=== PATIENT | female | born 1965 | race Caucasian/White ===

== ENCOUNTER 2018-04-22 08:59 | Inpatient (IN) | payer BC ==
[2018-04-22 10:17] LABS: ADD UMIC YES; UR ASCORBIC ACID 20 mg/dL (NEGATIVE); UR BILIRUBIN (Dip) NEGATIVE (NEGATIVE); UR BLOOD (Dip) 3+ mg/dL (NEGATIVE); UR CLARITY CLOUDY (CLEAR); UR COLOR AMBER (YELLOW); UR GLUCOSE (Dip) 1+ mg/dL (NEGATIVE); UR KETONES (Dip) TRACE mg/dL (NEGATIVE); UR LEUKOCYTE ESTERASE (Dip) NEGATIVE Leu/ul (NEGATIVE); UR NITRITE (Dip) NEGATIVE (NEGATIVE); UR SPECIFIC GRAVITY (Dip) 1.016 (1.003-1.030); UR TOTAL PROTEIN (Dip) 2+ mg/dl (NEGATIVE); UR UROBILINOGEN (Dip) NEGATIVE (NEGATIVE)
[2018-04-22 10:26] LABS: UR BACTERIA MODERATE /HPF (NONE SEEN); UR RBC > 182 /HPF (0-5); UR WBC > 182 /HPF (0-5)
[2018-04-22 10:30] LABS: UR SQUAMOUS EPITHELIAL CELL FEW /HPF (FEW)
[2018-04-22 10:40] LABS: ADD MAN DIFF? NO
[2018-04-22 10:43] LABS: ABNORMAL IP MESSAGE 1; BASOPHILS % 0.2 % (0.0-2.0); EOSINOPHILS % 0.6 % (0.0-7.0); HEMATOCRIT 20.4 % (37.0-47.0); LYMPHOCYTES # 1.5 10^3/ul (0.8-2.9); LYMPHOCYTES % 23.3 % (15.0-51.0); MEAN CORPUSCULAR HEMOGLOBIN 25.1 pg (29.0-33.0); MEAN CORPUSCULAR HGB CONC 29.9 g/dl (32.0-37.0); MEAN PLATELET VOLUME 12.1 fl (7.4-10.4); MONOCYTE # 0.3 10^3/ul (0.3-0.9); MONOCYTES % 5.2 % (0.0-11.0); NEUTROPHIL # 4.6 10^3/ul (1.6-7.5); NEUTROPHILS % 70.2 % (39.0-77.0); PLATELET COUNT 332 10^3/UL (140-415); RED BLOOD COUNT 2.43 10^6/ul (4.20-5.40); RED CELL DISTRIBUTION WIDTH 16.1 % (11.5-14.5)
[2018-04-22 10:43] LABS: WHITE BLOOD COUNT 6.6 10^3/ul (4.8-10.8)
[2018-04-22 10:57] LABS: POSITIVE DIFF @See below
[2018-04-22 11:11] LABS: ALANINE AMINOTRANSFERASE 16 IU/L (13-69); ALBUMIN 3.3 g/dl (3.3-4.9); ALKALINE PHOSPHATASE 58 IU/L (42-121); ANION GAP 15 (8-16); ASPARTATE AMINO TRANSFERASE 21 IU/L (15-46); BLOOD UREA NITROGEN 6 mg/dl (7-20); CALCIUM 8.4 mg/dl (8.4-10.2); CARBON DIOXIDE 25 mmol/L (21-31); CHLORIDE 106 mmol/L (97-110); CREATININE 0.48 mg/dl (0.44-1.00); GLUCOSE 210 mg/dl (70-220); LIPASE 82 U/L (23-300); POTASSIUM 3.7 mmol/L (3.5-5.1); SODIUM 142 mmol/L (135-144); TOTAL PROTEIN 6.3 g/dl (6.1-8.1)
[2018-04-22 11:55] LABS: ANISOCYTOSIS 2+ (0-0); BASOPHILS % (M) 1 % (0-2); GIANT THROMBO% (M) 2 % (0-0); HYPOCHROMASIA 2+ (0-0); LYMPHOCYTES #M 1.3 10^3/ul (0.8-2.9); LYMPHOCYTES % (M) 20 % (15-51); MICROCYTOSIS 2+ (0-0); MONOCYTE #M 0.1 10^3/ul (0.3-0.9); MONOCYTES % (M) 3 % (0-11); PLATELET ESTIMATE NORMAL; POLYCHROMASIA 1+ (0-0); REACTIVE LYMPHOCYTES% (M) 1 % (0-0); SEGMENTED NEUTROPHILS (M) % 75 % (39-77); SMUDGE%M 2 % (0-0)
[2018-04-22] MEDS: ESTROGENS CONJUGATED 25 MG INJ IV (12:34)
[2018-04-22 12:42] LABS: IRON 23 ug/dl (35-150)
[2018-04-22 12:52] LABS: % IRON SATURATION 6 % SAT (22-52); TOTAL IRON BINDING CAPACITY 360 ug/dl (241-421)
[2018-04-22] MEDS ORDERED: ACETAMINOPHEN 325 MG TAB PO (13:00)
[2018-04-22] MEDS ORDERED: ONDANSETRON 4 MG INJ IV ×2 (13:00→15:00)
[2018-04-22 13:21] LABS: FERRITIN 4.9 ng/ml (11.1-264.0)
[2018-04-22] MEDS ORDERED: NACL 0.9% 3 ML SYG IV (15:00)
[2018-04-22] MEDS ORDERED: GLUCAGON 1 MG INJ IM (15:30)
[2018-04-22] MEDS ORDERED: GLUCOSE GEL 15 GRAM TUBE BUCCAL (15:30)
[2018-04-22] MEDS ORDERED: DEXTROSE 50% 50 ML SYRINGE IV ×2 (15:30)
[2018-04-22] MEDS ORDERED: GLUCOSE GEL 15 GRAM TUBE PO ×2 (15:30)
[2018-04-22] MEDS: SOD CHLORIDE 0.9% 1,000 ML IV (15:59)
[2018-04-22] MEDS: CYANOCOBALAMIN 500 MCG TAB PO (17:33)
[2018-04-22] MEDS: INSULIN ASPART [NOVOLOG] 3 ML PEN SC ×2 (17:59→21:13)
[2018-04-22 18:08] LABS: HEMATOCRIT 17.2 % (37.0-47.0)
[2018-04-22 18:19] LABS: HEMOGLOBIN 5.2 g/dl (12.0-16.0)
[2018-04-22] MEDS: DOCUSATE SODIUM 100 MG CAP PO (18:42)
[2018-04-22] MEDS: SOD FERRIC GLUC COMPLX 125 MG in SOD CHLORIDE 0.9% 100 ML IVPB (18:42)
[2018-04-22] MEDS: INSULIN GLARGINE [LANTus] (100 UNITS/ML) SYG SC (21:17)
[2018-04-23] MEDS: ACCU-CHEK XX (01:50)
[2018-04-23] MEDS: ACETAMINOPHEN 325 MG TAB PO ×2 (06:36→15:54)
[2018-04-23 06:53] LABS: ADD MAN DIFF? NO
[2018-04-23 06:56] LABS: WHITE BLOOD COUNT 10.7 10^3/ul (4.8-10.8)
[2018-04-23 06:56] LABS: ABNORMAL IP MESSAGE 1; BASOPHILS % 0.3 % (0.0-2.0); EOSINOPHILS # 0.1 10^3/ul (0.0-0.5); EOSINOPHILS % 0.8 % (0.0-7.0); HEMATOCRIT 16.6 % (37.0-47.0); LYMPHOCYTES # 2.4 10^3/ul (0.8-2.9); LYMPHOCYTES % 21.9 % (15.0-51.0); MEAN CORPUSCULAR HEMOGLOBIN 24.4 pg (29.0-33.0); MEAN CORPUSCULAR HGB CONC 28.9 g/dl (32.0-37.0); MEAN CORPUSCULAR VOLUME 84.3 fl (82.0-101.0); MEAN PLATELET VOLUME 11.9 fl (7.4-10.4); MONOCYTE # 0.6 10^3/ul (0.3-0.9); NEUTROPHIL # 7.6 10^3/ul (1.6-7.5); NEUTROPHILS % 70.5 % (39.0-77.0); NUCLEATED RED BLOOD CELLS% 0.4 /100WBC (0.0-0.0); PLATELET COUNT 324 10^3/UL (140-415); RED BLOOD COUNT 1.97 10^6/ul (4.20-5.40); RED CELL DISTRIBUTION WIDTH 16.8 % (11.5-14.5)
[2018-04-23 07:01] LABS: POSITIVE DIFF @See below
[2018-04-23 07:03] LABS: HEMOGLOBIN 4.8 g/dl (12.0-16.0); PATH REVIEW? YES
[2018-04-23 07:45] LABS: ALANINE AMINOTRANSFERASE 18 IU/L (13-69); ALBUMIN 2.7 g/dl (3.3-4.9); ALKALINE PHOSPHATASE 39 IU/L (42-121); ANION GAP 13 (8-16); ASPARTATE AMINO TRANSFERASE 19 IU/L (15-46); BILIRUBIN,INDIRECT 0.1 mg/dl (0-1.1); BILIRUBIN,TOTAL 0.1 mg/dl (0.2-1.3); BLOOD UREA NITROGEN 9 mg/dl (7-20); CALCIUM 8.6 mg/dl (8.4-10.2); CARBON DIOXIDE 25 mmol/L (21-31); CHLORIDE 106 mmol/L (97-110); CHOL/HDL RATIO 3.6 RATIO; CHOLESTEROL 123 mg/dl (100-200); CREATININE 0.53 mg/dl (0.44-1.00); GLUCOSE 106 mg/dl (70-220); HDL CHOLESTEROL 34 mg/dl (37-92); LDL CHOLESTEROL,CALCULATED 64 mg/dl; MAGNESIUM 1.7 mg/dl (1.7-2.5); PHOSPHORUS 4.8 mg/dl (2.5-4.9); SODIUM 140 mmol/L (135-144); TOTAL PROTEIN 5.4 g/dl (6.1-8.1); TRIGLYCERIDES 127 mg/dl (0-149)
[2018-04-23] MEDS: INSULIN ASPART [NOVOLOG] 3 ML PEN SC ×4 (08:06→21:28)
[2018-04-23] MEDS: FOLIC ACID 1 MG TAB PO (08:10)
[2018-04-23 10:00] LABS: ANISOCYTOSIS 2+ (0-0); EOSINOPHILS % (M) 2 % (0-7); ERYTHROBLAST% (NRBC) (M) 1 % (0-0); GIANT THROMBO% (M) 1 % (0-0); HYPOCHROMASIA 1+ (0-0); LYMPHOCYTES #M 2.6 10^3/ul (0.8-2.9); LYMPHOCYTES % (M) 25 % (15-51); MICROCYTOSIS 2+ (0-0); MONOCYTE #M 0.3 10^3/ul (0.3-0.9); MONOCYTES % (M) 3 % (0-11); PLATELET ESTIMATE NORMAL; PLATELET MORPHOLOGY COMMENT @See below; POLYCHROMASIA 2+ (0-0); SEGMENTED NEUTROPHILS (M) % 71 % (39-77); SMUDGE%M 3 % (0-0)
[2018-04-23 11:36] LABS: ADD MAN DIFF? NO
[2018-04-23 11:42] LABS: ABNORMAL IP MESSAGE 1; BASOPHILS % 0.2 % (0.0-2.0); EOSINOPHILS % 0.4 % (0.0-7.0); HEMATOCRIT 17.4 % (37.0-47.0); LYMPHOCYTES # 1.8 10^3/ul (0.8-2.9); LYMPHOCYTES % 18.2 % (15.0-51.0); MEAN CORPUSCULAR HEMOGLOBIN 25.1 pg (29.0-33.0); MEAN CORPUSCULAR HGB CONC 29.9 g/dl (32.0-37.0); MEAN CORPUSCULAR VOLUME 84.1 fl (82.0-101.0); MEAN PLATELET VOLUME 11.7 fl (7.4-10.4); MONOCYTE # 0.4 10^3/ul (0.3-0.9); MONOCYTES % 4.5 % (0.0-11.0); NEUTROPHIL # 7.3 10^3/ul (1.6-7.5); NEUTROPHILS % 76.1 % (39.0-77.0); NUCLEATED RED BLOOD CELLS% 0.4 /100WBC (0.0-0.0); PLATELET COUNT 366 10^3/UL (140-415); RED BLOOD COUNT 2.07 10^6/ul (4.20-5.40); RED CELL DISTRIBUTION WIDTH 16.9 % (11.5-14.5)
[2018-04-23 11:42] LABS: WHITE BLOOD COUNT 9.6 10^3/ul (4.8-10.8)
[2018-04-23 11:43] LABS: RETICULOCYTE RBC 2.11
[2018-04-23 11:43] LABS: RETICULOCYTE COUNT # 0.124 X10^6 (0.020-0.110); RETICULOCYTE COUNT % 5.9 % (0.5-1.5)
[2018-04-23 11:54] LABS: HEMOGLOBIN 5.2 g/dl (12.0-16.0)
[2018-04-23 11:55] LABS: POSITIVE DIFF @See below
[2018-04-23] MEDS: EPOETIN 10000 UNITS/ML (NON ESRD/NON ONCOLOGY) SC (11:56)
[2018-04-23 12:07] LABS: PROTIME 13.3 Sec (11.9-14.9)
[2018-04-23] MEDS: SOD CHLORIDE 0.9% IVPB (17:33)
[2018-04-23] MEDS: SOD FERRIC GLUC COMPLX IVPB (17:33)
[2018-04-23 19:06] LABS: HEMATOCRIT 18.2 % (37.0-47.0)
[2018-04-23 19:22] LABS: HEMOGLOBIN 5.4 g/dl (12.0-16.0)
[2018-04-23] MEDS: INSULIN GLARGINE [LANTus] (100 UNITS/ML) SYG SC (21:27)
[2018-04-23] MEDS: DOCUSATE SODIUM 100 MG CAP PO (23:50)
[2018-04-24] MEDS: ACCU-CHEK XX (02:58)
[2018-04-24 06:33] LABS: HEMATOCRIT 16.4 % (37.0-47.0)
[2018-04-24 06:53] LABS: HEMOGLOBIN 4.9 g/dl (12.0-16.0)
[2018-04-24] MEDS: INSULIN ASPART [NOVOLOG] 3 ML PEN SC ×4 (07:48→20:36)
[2018-04-24] MEDS: ACETAMINOPHEN 325 MG TAB PO ×2 (07:51→22:31)
[2018-04-24] MEDS: FOLIC ACID 1 MG TAB PO (07:51)
[2018-04-24] MEDS: DOCUSATE SODIUM 100 MG CAP PO (13:20)
[2018-04-24] MEDS: SOD FERRIC GLUC COMPLX IVPB (17:32)
[2018-04-24] MEDS: SOD CHLORIDE 0.9% IVPB (17:32)
[2018-04-24] MEDS: INSULIN GLARGINE [LANTus] (100 UNITS/ML) SYG SC (20:37)
[2018-04-25] MEDS: ACCU-CHEK XX (02:14)
[2018-04-25 06:30] LABS: HEMATOCRIT 16.6 % (37.0-47.0)
[2018-04-25 07:01] LABS: HEMOGLOBIN 4.8 g/dl (12.0-16.0)
[2018-04-25] MEDS: INSULIN ASPART [NOVOLOG] 3 ML PEN SC ×4 (08:00→20:27)
[2018-04-25] MEDS: FOLIC ACID 1 MG TAB PO ×2 (08:16→09:00)
[2018-04-25] MEDS ORDERED: IPRATROPIUM (NEB) 0.5 MG/2.5 ML AMP HHN (10:00)
[2018-04-25] MEDS ORDERED: FENTAnyl 50 MCG/ML VIAL IV ×2 (10:00)
[2018-04-25] MEDS ORDERED: MEPERIDINE 25 MG INJ IV (10:00)
[2018-04-25] MEDS ORDERED: DIPHENHYDRAMINE 50 MG INJ IV (10:00)
[2018-04-25] MEDS ORDERED: ONDANSETRON 4 MG INJ IV (10:00)
[2018-04-25] MEDS ORDERED: HYDROmorphONE 1 MG/5 ML IV SYRINGE IV ×2 (10:00)
[2018-04-25] MEDS: MEDROXYPROGESTERONE 10 MG TAB PO (12:25)
[2018-04-25] MEDS: SOD FERRIC GLUC COMPLX IVPB (16:51)
[2018-04-25] MEDS: SOD CHLORIDE 0.9% IVPB (16:51)
[2018-04-25] MEDS: POLYETHYLENE GLYCOL 17 GM PACKET PO (17:57)
[2018-04-25] MEDS: INSULIN GLARGINE [LANTus] (100 UNITS/ML) SYG SC (20:28)
[2018-04-26] MEDS: ACCU-CHEK XX (01:54)
[2018-04-26] MEDS: INSULIN ASPART [NOVOLOG] 3 ML PEN SC ×4 (07:50→20:44)
[2018-04-26] MEDS: MEDROXYPROGESTERONE 10 MG TAB PO (08:19)
[2018-04-26] MEDS: FOLIC ACID 1 MG TAB PO (08:19)
[2018-04-26] MEDS: POLYETHYLENE GLYCOL 17 GM PACKET PO (08:19)
[2018-04-26] MEDS: SOD CHLORIDE 0.9% IVPB (16:44)
[2018-04-26] MEDS: SOD FERRIC GLUC COMPLX IVPB (16:44)
[2018-04-26] MEDS: ACETAMINOPHEN 325 MG TAB PO (16:52)
[2018-04-26] MEDS: INSULIN GLARGINE [LANTus] (100 UNITS/ML) SYG SC (20:43)
[2018-04-27] MEDS: ACCU-CHEK XX (01:52)
[2018-04-27 06:51] LABS: HEMOGLOBIN 6.1 g/dl (12.0-16.0)
[2018-04-27] MEDS: MEDROXYPROGESTERONE 10 MG TAB PO (08:12)
[2018-04-27] MEDS: POLYETHYLENE GLYCOL 17 GM PACKET PO (08:12)
[2018-04-27] MEDS: FOLIC ACID 1 MG TAB PO (08:12)
[2018-04-27] MEDS: INSULIN ASPART [NOVOLOG] 3 ML PEN SC ×4 (08:17→21:16)
[2018-04-27] MEDS ORDERED: EPOETIN 4000 UNITS/ML (NON ESRD/NON ONCOLOGY) SC (10:00)
[2018-04-27] MEDS ORDERED: SOD FERRIC GLUC COMPLX IVPB (12:00)
[2018-04-27] MEDS ORDERED: SOD CHLORIDE 0.9% IVPB (12:00)
[2018-04-27] MEDS: CYANOCOBALAMIN 100 MCG TAB PO (12:17)
[2018-04-27] MEDS: EPOETIN 10000 UNITS/ML (NON ESRD/NON ONCOLOGY) SC (12:18)
[2018-04-27] MEDS: DICLOFENAC SODIUM 1% GEL 100 GM TUBE TP ×2 (17:24→21:14)
[2018-04-27] MEDS: SOD CHLORIDE 0.9% IVPB (17:24)
[2018-04-27] MEDS: SOD FERRIC GLUC COMPLX IVPB (17:24)
[2018-04-27] MEDS: INSULIN GLARGINE [LANTus] (100 UNITS/ML) SYG SC (21:15)
[2018-04-28] MEDS: ACCU-CHEK XX (02:07)
[2018-04-28 05:58] LABS: ABNORMAL IP MESSAGE 1; ADD MAN DIFF? NO; BASOPHILS % 0.4 % (0.0-2.0); EOSINOPHILS # 0.2 10^3/ul (0.0-0.5); EOSINOPHILS % 2.3 % (0.0-7.0); HEMATOCRIT 21.1 % (37.0-47.0); LYMPHOCYTES # 1.9 10^3/ul (0.8-2.9); LYMPHOCYTES % 18.7 % (15.0-51.0); MEAN CORPUSCULAR HEMOGLOBIN 26.6 pg (29.0-33.0); MONOCYTE # 0.6 10^3/ul (0.3-0.9); MONOCYTES % 5.8 % (0.0-11.0); NEUTROPHILS % 69.8 % (39.0-77.0); NUCLEATED RED BLOOD CELLS # 0.7 10^3/ul (0.0-0.0); NUCLEATED RED BLOOD CELLS% 6.8 /100WBC (0.0-0.0); PLATELET COUNT 330 10^3/UL (140-415); RED BLOOD COUNT 2.22 10^6/ul (4.20-5.40); RED CELL DISTRIBUTION WIDTH 25.7 % (11.5-14.5); RETICULOCYTE COUNT # 0.317 X10^6 (0.020-0.110); RETICULOCYTE COUNT % 14.3 % (0.5-1.5); RETICULOCYTE RBC 2.22
[2018-04-28 05:58] LABS: WHITE BLOOD COUNT 10.1 10^3/ul (4.8-10.8)
[2018-04-28 06:06] LABS: POSITIVE DIFF @See below
[2018-04-28 06:07] LABS: HEMOGLOBIN 5.9 g/dl (12.0-16.0)
[2018-04-28] MEDS: DICLOFENAC SODIUM 1% GEL 100 GM TUBE TP ×4 (08:26→21:01)
[2018-04-28] MEDS: INSULIN ASPART [NOVOLOG] 3 ML PEN SC ×4 (08:30→21:06)
[2018-04-28] MEDS: ACETAMINOPHEN 325 MG TAB PO ×2 (10:07→23:38)
[2018-04-28] MEDS: MEDROXYPROGESTERONE 10 MG TAB PO (10:07)
[2018-04-28] MEDS: FOLIC ACID 1 MG TAB PO (10:08)
[2018-04-28] MEDS: POLYETHYLENE GLYCOL 17 GM PACKET PO (10:08)
[2018-04-28] MEDS: CYANOCOBALAMIN 100 MCG TAB PO (10:08)
[2018-04-28] MEDS ORDERED: EPOETIN 4000 UNITS/ML (NON ESRD/NON ONCOLOGY) SC (17:00)
[2018-04-28] MEDS: EPOETIN 10000 UNITS/ML (NON ESRD/NON ONCOLOGY) SC (17:29)
[2018-04-28] MEDS: INSULIN GLARGINE [LANTus] (100 UNITS/ML) SYG SC (21:00)
[2018-04-28] MEDS: DOCUSATE SODIUM 100 MG CAP PO (21:01)
[2018-04-28] MEDS: FERROUS SULFATE (EC) 325 MG TAB PO (21:01)
[2018-04-29] MEDS: ACCU-CHEK XX (01:54)
[2018-04-29] MEDS: INSULIN ASPART [NOVOLOG] 3 ML PEN SC ×4 (08:36→20:43)
[2018-04-29] MEDS: FERROUS SULFATE (EC) 325 MG TAB PO ×3 (08:37→20:45)
[2018-04-29] MEDS: MEDROXYPROGESTERONE 10 MG TAB PO (08:38)
[2018-04-29] MEDS: FOLIC ACID 1 MG TAB PO (08:39)
[2018-04-29] MEDS: DICLOFENAC SODIUM 1% GEL 100 GM TUBE TP ×4 (08:40→20:46)
[2018-04-29] MEDS: CYANOCOBALAMIN 100 MCG TAB PO (08:40)
[2018-04-29] MEDS: POLYETHYLENE GLYCOL 17 GM PACKET PO (08:40)
[2018-04-29] MEDS: ASCORBIC ACID 500 MG TAB PO (12:19)
[2018-04-29] MEDS: ACETAMINOPHEN 325 MG TAB PO ×2 (14:05→21:06)
[2018-04-29] MEDS: INSULIN GLARGINE [LANTus] (100 UNITS/ML) SYG SC (20:44)
[2018-04-30] MEDS: ACCU-CHEK XX (01:46)
[2018-04-30 07:48] LABS: HEMATOCRIT 26.6 % (37.0-47.0); HEMOGLOBIN 7.4 g/dl (12.0-16.0)
[2018-04-30] MEDS: FOLIC ACID 1 MG TAB PO (08:21)
[2018-04-30] MEDS: ASCORBIC ACID 500 MG TAB PO (08:21)
[2018-04-30] MEDS: FERROUS SULFATE (EC) 325 MG TAB PO (08:21)
[2018-04-30] MEDS: CYANOCOBALAMIN 100 MCG TAB PO (08:21)
[2018-04-30] MEDS: MEDROXYPROGESTERONE 10 MG TAB PO (08:21)
[2018-04-30] MEDS: DICLOFENAC SODIUM 1% GEL 100 GM TUBE TP (08:22)
[2018-04-30] MEDS: POLYETHYLENE GLYCOL 17 GM PACKET PO (08:22)
[2018-04-30] MEDS: INSULIN ASPART [NOVOLOG] 3 ML PEN SC (08:40)
== END 2018-04-30 11:20 | disposition home health service (06) | DRG 760 ==
LOC: 6WM 04-26 23:41 → 2NE 04-28 17:52 → FTE 08:59 → 6WM 12:42
DX: N93.8 Other specified abnormal uterine and vaginal bleeding (principal); D62 Acute posthemorrhagic anemia; D25.9 Leiomyoma of uterus, unspecified; Z53.1 Procedure and treatment not carried out because of patient's decision for reasons of belief and group pressure; I10 Essential (primary) hypertension; E11.9 Type 2 diabetes mellitus without complications; K59.00 Constipation, unspecified; I80.8 Phlebitis and thrombophlebitis of other sites
CPT/HCPCS: 36415; 76830; 76856; 80053; 80061; 81001; 81025; 82728; 82962; 83036; 83540; 83690; 83735; 84100; 85014; 85018; 85025; 85045; 85384; 85610; 85730; 93971; 96374; 99285-25

== ENCOUNTER 2019-03-30 10:10 | Emergency (ER) | payer BC ==
[2019-03-30 11:18] LABS: ADD MAN DIFF? NO
[2019-03-30 11:29] LABS: BASOPHILS % 0.4 % (0.0-2.0); EOSINOPHILS # 0.1 10^3/ul (0.0-0.5); EOSINOPHILS % 0.6 % (0.0-7.0); HEMATOCRIT 23.6 % (37.0-47.0); LYMPHOCYTES # 1.8 10^3/ul (0.8-2.9); LYMPHOCYTES % 22.7 % (15.0-51.0); MEAN CORPUSCULAR HEMOGLOBIN 22.4 pg (29.0-33.0); MEAN CORPUSCULAR HGB CONC 29.7 g/dl (32.0-37.0); MEAN CORPUSCULAR VOLUME 75.6 fl (82.0-101.0); MEAN PLATELET VOLUME 11.7 fl (7.4-10.4); MONOCYTE # 0.3 10^3/ul (0.3-0.9); MONOCYTES % 4.1 % (0.0-11.0); NEUTROPHIL # 5.6 10^3/ul (1.6-7.5); NEUTROPHILS % 71.8 % (39.0-77.0); NUCLEATED RED BLOOD CELLS% 0.3 /100WBC (0.0-0.0); PLATELET COUNT 348 10^3/UL (140-415); RED BLOOD COUNT 3.12 10^6/ul (4.20-5.40); RED CELL DISTRIBUTION WIDTH 19.4 % (11.5-14.5)
[2019-03-30 11:29] LABS: WHITE BLOOD COUNT 7.8 10^3/ul (4.8-10.8)
== END 2019-03-30 12:08 | disposition home or self-care (01) ==
LOC: E/R 12:08
DX: N93.9 Abnormal uterine and vaginal bleeding, unspecified (principal); I10 Essential (primary) hypertension; E11.9 Type 2 diabetes mellitus without complications; Z79.84 Long term (current) use of oral hypoglycemic drugs
CPT/HCPCS: 85025; 99283

== ENCOUNTER 2019-04-14 08:07 | Inpatient (IN) | payer BC ==
[2019-04-14] MEDS ORDERED: DEXTROSE 5%-0.45% NACL 1,000 ML IV (08:39)
[2019-04-14] MEDS ORDERED: MAGNESIUM HYDROXIDE 30ML CUP PO (09:00)
[2019-04-14] MEDS ORDERED: DOCUSATE SODIUM 100 MG CAP PO (09:00)
[2019-04-14] MEDS ORDERED: NACL 0.9% 3 ML SYG IV (09:00)
[2019-04-14] MEDS ORDERED: ONDANSETRON 4 MG INJ IV (09:00)
[2019-04-14] MEDS ORDERED: LOSARTAN 50 MG TAB PO (09:00)
[2019-04-14] MEDS ORDERED: HYDROCODONE/APAP (5/325) TAB PO (09:00)
[2019-04-14 09:13] LABS: ADD MAN DIFF? NO
[2019-04-14 09:14] LABS: ABNORMAL IP MESSAGE 1; BASOPHILS % 0.3 % (0.0-2.0); EOSINOPHILS # 0.1 10^3/ul (0.0-0.5); EOSINOPHILS % 1.1 % (0.0-7.0); HEMATOCRIT 20.6 % (37.0-47.0); LYMPHOCYTES # 1.6 10^3/ul (0.8-2.9); LYMPHOCYTES % 24.6 % (15.0-51.0); MEAN CORPUSCULAR HEMOGLOBIN 21.2 pg (29.0-33.0); MEAN CORPUSCULAR HGB CONC 26.7 g/dl (32.0-37.0); MEAN CORPUSCULAR VOLUME 79.2 fl (82.0-101.0); MEAN PLATELET VOLUME 10.7 fl (7.4-10.4); MONOCYTE # 0.4 10^3/ul (0.3-0.9); MONOCYTES % 6.3 % (0.0-11.0); NEUTROPHIL # 4.2 10^3/ul (1.6-7.5); NEUTROPHILS % 67.2 % (39.0-77.0); PLATELET COUNT 304 10^3/UL (140-415); RED CELL DISTRIBUTION WIDTH 17.4 % (11.5-14.5)
[2019-04-14 09:14] LABS: WHITE BLOOD COUNT 6.3 10^3/ul (4.8-10.8)
[2019-04-14 09:28] LABS: HEMOGLOBIN 5.5 g/dl (12.0-16.0); POSITIVE DIFF @See below
[2019-04-14 09:38] LABS: ALBUMIN 3.6 g/dl (3.3-4.9); ANION GAP 8 (5-13); BLOOD UREA NITROGEN 4 mg/dl (7-20); CALCIUM 8.4 mg/dl (8.4-10.2); CARBON DIOXIDE 27 mmol/L (21-31); CHLORIDE 105 mmol/L (97-110); GLUCOSE 167 mg/dl (70-220); PHOSPHORUS 3.3 mg/dl (2.5-4.9); POTASSIUM 3.9 mmol/L (3.5-5.1); SODIUM 140 mmol/L (135-144)
[2019-04-14] MEDS: CYANOCOBALAMIN 500 MCG TAB PO (11:55)
[2019-04-14] MEDS: FOLIC ACID 1 MG TAB PO (11:55)
[2019-04-14] MEDS: EPOETIN ALFA-EPBX (NON-ESRD 10,000 UNIT/ML VIAL SC (11:56)
[2019-04-14] MEDS: INSULIN ASPART [NOVOLOG] 3 ML PEN SC ×3 (12:00→20:36)
[2019-04-14] MEDS: SOD FERRIC GLUC COMPLX 125 MG in SOD CHLORIDE 0.9% 100 ML IVPB (13:46)
[2019-04-14] MEDS: ALBUMIN HUMAN 5% 250 ML IV ×2 (13:48→17:51)
[2019-04-14] MEDS: MEDROXYPROGESTERONE 150 MG INJ SYG IM (13:50)
[2019-04-14] MEDS: INSULIN GLARGINE [LANTus] (100 UNITS/ML) SYG SC (14:11)
[2019-04-14] MEDS: ACETAMINOPHEN 325 MG TAB PO (14:32)
[2019-04-15] MEDS: ACCU-CHEK XX ×2 (02:46→23:28)
[2019-04-15] MEDS ORDERED: PANTOPRAZOLE (EC) 40 MG TAB PO (06:00)
[2019-04-15 06:54] LABS: HEMATOCRIT 19.7 % (37.0-47.0)
[2019-04-15 06:58] LABS: HEMOGLOBIN 5.4 g/dl (12.0-16.0)
[2019-04-15] MEDS: INSULIN ASPART [NOVOLOG] 3 ML PEN SC ×7 (08:07→21:34)
[2019-04-15] MEDS: FOLIC ACID 1 MG TAB PO (09:04)
[2019-04-15] MEDS: INSULIN GLARGINE [LANTus] (100 UNITS/ML) SYG SC (09:29)
[2019-04-15] MEDS: SOD FERRIC GLUC COMPLX 125 MG in SOD CHLORIDE 0.9% 100 ML IVPB (13:30)
[2019-04-15] MEDS ORDERED: ACCU-CHEK XX (21:30)
[2019-04-15] MEDS: ACETAMINOPHEN 325 MG TAB PO (21:42)
[2019-04-16] MEDS: ACCU-CHEK XX (02:27)
[2019-04-16 06:24] LABS: INR 0.94; PARTIAL THROMBOPLASTIN TIME 33.7 Sec (23.0-35.0); PROTIME 12.7 Sec (11.9-14.9)
[2019-04-16] MEDS: FOLIC ACID 1 MG TAB PO (08:04)
[2019-04-16] MEDS: INSULIN ASPART [NOVOLOG] 3 ML PEN SC ×7 (08:46→21:34)
[2019-04-16] MEDS: INSULIN GLARGINE [LANTus] (100 UNITS/ML) SYG SC (10:16)
[2019-04-16] MEDS: SOD FERRIC GLUC COMPLX 125 MG in SOD CHLORIDE 0.9% 100 ML IVPB (12:30)
[2019-04-16 18:08] LABS: OCCULT BLOOD STOOL NEGATIVE (NEGATIVE)
[2019-04-16] MEDS: EPOETIN ALFA-EPBX (NON-ESRD 10,000 UNIT/ML VIAL SC (18:23)
[2019-04-17] MEDS: ACCU-CHEK XX (02:30)
[2019-04-17] MEDS: FOLIC ACID 1 MG TAB PO (08:11)
[2019-04-17 08:39] LABS: HEMATOCRIT 23.5 % (37.0-47.0)
[2019-04-17 08:42] LABS: HEMOGLOBIN 6.4 g/dl (12.0-16.0)
[2019-04-17] MEDS: INSULIN GLARGINE [LANTus] (100 UNITS/ML) SYG SC (08:49)
[2019-04-17] MEDS: INSULIN ASPART [NOVOLOG] 3 ML PEN SC ×7 (08:50→21:00)
[2019-04-17] MEDS: SOD FERRIC GLUC COMPLX 125 MG in SOD CHLORIDE 0.9% 100 ML IVPB (12:04)
[2019-04-18] MEDS: ACCU-CHEK XX (02:00)
[2019-04-18] MEDS: INSULIN ASPART [NOVOLOG] 3 ML PEN SC ×7 (07:50→21:52)
[2019-04-18] MEDS: INSULIN GLARGINE [LANTus] (100 UNITS/ML) SYG SC (09:06)
[2019-04-18] MEDS: FOLIC ACID 1 MG TAB PO (09:12)
[2019-04-18] MEDS: EPOETIN ALFA-EPBX (NON-ESRD 10,000 UNIT/ML VIAL SC (09:13)
[2019-04-18] MEDS: SOD FERRIC GLUC COMPLX 125 MG in SOD CHLORIDE 0.9% 100 ML IVPB (12:53)
[2019-04-19] MEDS: ACCU-CHEK XX (02:12)
[2019-04-19] MEDS: INSULIN ASPART [NOVOLOG] 3 ML PEN SC ×4 (08:02→11:53)
[2019-04-19] MEDS: INSULIN GLARGINE [LANTus] (100 UNITS/ML) SYG SC (08:05)
[2019-04-19 08:06] LABS: WHITE BLOOD COUNT 7.9 10^3/ul (4.8-10.8)
[2019-04-19 08:06] LABS: ABNORMAL IP MESSAGE 1; HEMATOCRIT 25.2 % (37.0-47.0); MEAN CORPUSCULAR HGB CONC 27.8 g/dl (32.0-37.0); MEAN CORPUSCULAR VOLUME 86.3 fl (82.0-101.0); NUCLEATED RED BLOOD CELLS% 1.8 /100WBC (0.0-0.0); PLATELET COUNT 297 10^3/UL (140-415); RED BLOOD COUNT 2.92 10^6/ul (4.20-5.40); RED CELL DISTRIBUTION WIDTH 23.9 % (11.5-14.5); RETICULOCYTE COUNT # 0.342 X10^6 (0.020-0.110); RETICULOCYTE COUNT % 11.7 % (0.5-1.5); RETICULOCYTE RBC 2.92
[2019-04-19 08:18] LABS: ADD MAN DIFF? YES; POSITIVE DIFF @See below
[2019-04-19] MEDS: FOLIC ACID 1 MG TAB PO (08:40)
[2019-04-19 09:50] LABS: ANISOCYTOSIS 2+ (0-0); BAND NEUTROPHILS % (M) 1 % (0-4); ERYTHROBLAST% (NRBC) (M) 3 % (0-0); LYMPHOCYTES #M 1.9 10^3/ul (0.8-2.9); LYMPHOCYTES % (M) 25 % (15-51); METAMYELOCYTES %M 1 % (0-0); MICROCYTOSIS 2+ (0-0); MONOCYTE #M 0.4 10^3/ul (0.3-0.9); MONOCYTES % (M) 6 % (0-11); PLATELET ESTIMATE NORMAL; POIKILOCYTOSIS 1+ (0-0); POLYCHROMASIA 3+ (0-0); REACTIVE LYMPHOCYTES #M 0.2 10^3/ul (0.0-0.0); REACTIVE LYMPHOCYTES% (M) 3 % (0-0); SEG NEUT #M 5.1 10^3/ul (1.6-7.5); SEGMENTED NEUTROPHILS (M) % 64 % (39-77); SMUDGE%M 7 % (0-0)
[2019-04-19] MEDS: SOD FERRIC GLUC COMPLX 125 MG in SOD CHLORIDE 0.9% 100 ML IVPB (12:32)
== END 2019-04-19 15:00 | disposition home or self-care (01) | DRG 812 ==
LOC: TEL 08:07
PROC: 3E0F7GC Introduction of Other Therapeutic Substance into Respiratory Tract, Via Natural or Artificial Opening (ICD-10-PCS; principal; 2019-04-15)
DX: D50.0 Iron deficiency anemia secondary to blood loss (chronic) (principal); N93.8 Other specified abnormal uterine and vaginal bleeding; D25.9 Leiomyoma of uterus, unspecified; I10 Essential (primary) hypertension; E11.9 Type 2 diabetes mellitus without complications
CPT/HCPCS: 76856; 80069; 82270; 82962; 83036; 83735; 84210; 85014; 85018; 85025; 85045; 85610; 85730; 97166